=== PATIENT | male | born 1985 | race Hispanic/Latino ===

== ENCOUNTER 2018-06-19 12:17 | Emergency (ER) | payer SELFPAY ==
[2018-06-19] MEDS ORDERED: TETANUS/DIPHTHERIA TOXOID [ADULT] 0.5 ML VIAL IM ONE (12:43)
[2018-06-19] MEDS ORDERED: LIDOCAINE HCL 1% 20 ML VIAL ONE (12:49)
== END 2018-06-19 13:44 | disposition home or self-care (01) ==
LOC: EDH 12:17
DX: S61.210A Laceration without foreign body of right index finger without damage to nail, initial encounter (principal); W45.8XXA Other foreign body or object entering through skin, initial encounter; Y93.89 Activity, other specified; Y92.098 Other place in other non-institutional residence as the place of occurrence of the external cause; Y99.8 Other external cause status
CPT/HCPCS: 12001; 73130; 90471; 90714